=== PATIENT | female | born 1945 | race Caucasian/White ===

== ENCOUNTER → 2018-03-21 | Outpatient (CLI) | payer MEDICARE ==
[~2018-03-21] MED LIST: COREG3.125 MG PO; IOPAMIDOL 370 MG/ML 200 ML INFUS..BTL INJ ONE; LEVAQUIN750 MG PO; LIPITOR20 MG PO; NORVASC5 MG PO; PLAVIX75 MG PO; SODIUM CHLORIDE 0.9% 100 ML ONE; SODIUM CHLORIDE 0.9% 250ML 500 ML ONE; SODIUM CHLORIDE 0.9% 50ML 50 ML ONE
[2018-03-21 15:24] LABS: CREATININE, SERUM 1.44 mg/dL (0.57-1.11)
--- NOTE | 2018-03-22 13:42 | Diagnostic Imaging Report ---
EXAMINATION: CT angiogram of the [place] and neck with contrast CLINICAL HISTORY: Dizziness, enlarged ventricles, vertebral basilar atherosclerosis. COMPARISON: Brain MRI on 10/15/2009 TECHNIQUE: The head and neck was scanned utilizing a multidetector helical scanner from the thoracic inlet to the vertex after the I.V contrast administration of 75 mL of Isovue-370. Multiplanar sagittal and coronal reconstructions were performed as well. FINDINGS: The are no areas of abnormal density or enhancement in the brain. There is no mass, hemorrhage or extra-axial fluid collection. The CSF containing spaces are normal in size, position and configuration. CT ANGIOGRAM OF THE [place]: The internal carotid artery segments as well as the middle cerebral and anterior cerebral arteries are normal in caliber. The basilar and right vertebral arteries are normal. No vascular malformation or aneurysmal dilatation is seen. The draining venous structures are normal and patent. Anatomic variation: Anterior Communicating Artery: Patent Posterior Communicating Arteries: Patent bilaterally. origin of left [employer] Vertebral arteries: The right is dominant. 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 Fenestrated basilar artery CT ANGIOGRAM OF THE NECK: If present, stenosis of the carotid bulbs is measured based on NASCET criteria i.e area of maximum stenosis compared to the cervical ICA distal to the bulb. The origin of the vessels is patent bilaterally. Mostly calcified atherosclerotic plaque in the bilateral carotid bulbs results in mild stenosis (a some 50%.) Right Carotid Artery: The common carotid, internal and external carotid arteries at the level of the neck are normal in caliber, and patent, no evidence of stenoses. Left carotid artery: The common carotid, internal and external carotid arteries at the level of the neck are normal in caliber, and patent, no evidence of stenoses. 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 The right vertebral artery is dominant, patent. Both are normal in morphology and caliber. Both are codominant. No significant stenosis is seen. Incidental findings: Near complete opacification of the right maxillary sinus with hyperdensity/central calcifications likely from chronic artery process. IMPRESSION: 1. Mild stenosis of the bilateral carotid bulbs (less than 50%). 2. 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 Signed by: Dr. Janis Wallace M.D. on 03/22/2018 1:38 PM
--- NOTE | 2018-03-22 13:42 | Diagnostic Imaging Report ---
EXAMINATION: CT angiogram of the [place] and neck with contrast CLINICAL HISTORY: Dizziness, enlarged ventricles, vertebral basilar atherosclerosis. COMPARISON: Brain MRI on 10/15/2009 TECHNIQUE: The head and neck was scanned utilizing a multidetector helical scanner from the thoracic inlet to the vertex after the I.V contrast administration of 75 mL of Isovue-370. Multiplanar sagittal and coronal reconstructions were performed as well. FINDINGS: The are no areas of abnormal density or enhancement in the brain. There is no mass, hemorrhage or extra-axial fluid collection. The CSF containing spaces are normal in size, position and configuration. CT ANGIOGRAM OF THE [place]: The internal carotid artery segments as well as the middle cerebral and anterior cerebral arteries are normal in caliber. The basilar and right vertebral arteries are normal. No vascular malformation or aneurysmal dilatation is seen. The draining venous structures are normal and patent. Anatomic variation: Anterior Communicating Artery: Patent Posterior Communicating Arteries: Patent bilaterally. origin of left [employer] Vertebral arteries: The right is dominant. 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 Fenestrated basilar artery CT ANGIOGRAM OF THE NECK: If present, stenosis of the carotid bulbs is measured based on NASCET criteria i.e area of maximum stenosis compared to the cervical ICA distal to the bulb. The origin of the vessels is patent bilaterally. Mostly calcified atherosclerotic plaque in the bilateral carotid bulbs results in mild stenosis (a some 50%.) Right Carotid Artery: The common carotid, internal and external carotid arteries at the level of the neck are normal in caliber, and patent, no evidence of stenoses. Left carotid artery: The common carotid, internal and external carotid arteries at the level of the neck are normal in caliber, and patent, no evidence of stenoses. 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 The right vertebral artery is dominant, patent. Both are normal in morphology and caliber. Both are codominant. No significant stenosis is seen. Incidental findings: Near complete opacification of the right maxillary sinus with hyperdensity/central calcifications likely from chronic artery process. IMPRESSION: 1. Mild stenosis of the bilateral carotid bulbs (less than 50%). 2. 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 Signed by: Dr. Janis Wallace M.D. on 03/22/2018 1:38 PM
== END ==
LOC: CT 14:37
PROVIDERS: ATTEND Radiology Neuroradiology
DX: G45.0 Vertebro-basilar artery syndrome (principal)
CPT/HCPCS: 36415; 70496; 70498; 82565; 84520; J7050 ×2; Q9967

== ENCOUNTER → 2018-08-16 | Day surgery (SDC) | payer MEDICARE ==
[2018-08-15 11:28] LABS: BASOPHILS # (AUTO) 0.1 (0.0-0.1); BASOPHILS % 0.7 % (0.0-1.0); EOSINOPHILS # (AUTO) 0.2 (0.0-0.4); HEMATOCRIT 34.1 % (34.2-44.1); HEMOGLOBIN 11.4 g/dL (12.0-16.0); LYMPHOCYTES # (AUTO) 2.3 (1.0-3.2); LYMPHOCYTES % 34.1 % (18.0-39.1); MEAN CORPUSCULAR HEMOGLOBIN 31.1 pg (28-32); MEAN CORPUSCULAR HGB CONC 33.4 g/dL (31-35); MEAN CORPUSCULAR VOLUME 93.2 fL (81-99); MONOCYTES # (AUTO) 0.4 (0.2-0.8); MONOCYTES % 5.5 % (4.4-11.3); NEUTROPHILS # (AUTO) 3.8 (2.1-6.9); NEUTROPHILS % 56.4 % (38.7-80.0); PLATELET COUNT 200 x10e3/uL (140-360); RED BLOOD COUNT 3.66 x10e6/uL (3.6-5.1); RED CELL DISTRIBUTION WIDTH 11.9 % (11.7-14.4)
[2018-08-15 11:50] LABS: INR 0.88; PROTHROMBIN TIME 12.8 seconds (11.9-14.5)
[2018-08-15 11:51] LABS: ALBUMIN 3.7 g/dL (3.5-5.0); ALBUMIN/GLOBULIN RATIO 1.2 (0.8-2.0); ANION GAP 10.3 mmol/L (8-16); CHOL/HDL RATIO 3.1 (3.0-3.6); CREATININE, SERUM 1.52 mg/dL (0.57-1.11); POTASSIUM 5.3 mmol/L (3.5-5.1)
[~2018-08-16] VITALS: Ht 154.9 cm; Wt 49.0 kg
[2018-08-16] VITALS (8 sets, daily range): BP systolic 106–167; BP diastolic 53–97
[~2018-08-16] MED LIST changes: +ASPIR 8181 MG PO; +FENTANYL CITRATE/PF 100MCG/2 ML INJ ONE; +HEPARIN SOD/SOD CHLORIDE 2,000 ML ONE; +HYDROCHLOROTHIA25 MG PO; +IBANDRONATE SO150 MG PO; +LIDOCAINE HCL 2% LOCAL 20 ML VIAL ONE; +METOPROLOL SUCC25 MG PO; +MIDAZOLAM HCL 2 MG/2 ML VIAL ONE; -SODIUM CHLORIDE 0.9% 100 ML ONE; +SODIUM CHLORIDE 0.9% 1000ML 1,000 ML ONE; -SODIUM CHLORIDE 0.9% 250ML 500 ML ONE; -SODIUM CHLORIDE 0.9% 50ML 50 ML ONE
--- OUTSIDE RECORDS SUMMARY | 2018-08-16 11:58 | XMS REPORT | Summary of Care ---
Author Author [facility] Organization [facility] Address Unknown Phone Unavailable Encounter BEN Friedman(CESAR) [id number] Date(s): 02/15/16 - 02/15/16 [facility] [address] [place] [address]- Discharge Disposition: Home Attending Physician: Dewey Portillo MD Referring Physician: Dewey Portillo MD Vital Signs No data available for this section Problem List Condition Effective Dates Status Health Status Informant Benign Active hypertension1, 2 Chest pain3, 4 Active Disorder of carotid Active artery5, 6 Dizziness7, 8 Active Dizziness(Confirmed) Resolved Hyperlipidemia9, 10 11/13/13 Active Preinfarction Active [id number], 12 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 2Data migrated from [employer] on 02/16/15. 3Data migrated from [employer] on 02/16/15. 4Data migrated from [employer] on 02/16/15. 5Data migrated from [employer] on 02/16/15. 6Data migrated from [employer] on 02/16/15. 7Data migrated from [employer] on 02/16/15. 8Data migrated from [employer] on 02/16/15. 9Data migrated from [employer] on 02/16/15. 10Data migrated from [employer] on 02/16/15. 11Data migrated from [employer] on 02/16/15. 12Data migrated from [employer] on 02/16/15. 13Data migrated from [employer] on 05/11/15. Allergies, Adverse Reactions, Alerts Substance Reaction Severity Status codeine1 Active Demerol HCl Active meperidine2 Active 1Data migrated from [employer] on 11/17/15. Originally documented as CODEINE. 2Data migrated from [facility] on 01/14/15. Originally documented as DEMEROL. Medications No data available for this section Results No data available for this section Immunizations No data available for this section Procedures No data available for this section Social History No data available for this section Assessment and Plan No data available for this section
--- OUTSIDE RECORDS SUMMARY | 2018-08-16 11:58 | XMS REPORT | Summary of Care ---
Author Organization Unknown Address Unknown Phone Unavailable Encounter [facility] Encntr_gordon(CESAR) [id number] Date(s): 02/17/14 - 02/17/14 [facility] [address] Discharge Disposition: Home Physician Attending: Alber Desai DO Physician_Referring: Alber Desai DO Reason for Visit 3D SCREENING/ 733.01 AGE RELATED OSTEOPOROSIS Problem List Condition Effective Dates Status Health Status Informant Chest Resolved pain(Confirmed) Dizziness(Confirmed) Resolved Allergies, Adverse Reactions, Alerts Substance Reaction Severity Status codeine Active Demerol HCl Active Medications No data available for this section Medications Administered During Your Visit No data available for this section Immunizations No data available for this section
--- OUTSIDE RECORDS SUMMARY | 2018-08-16 11:58 | XMS REPORT | Summary of Care ---
Author Author [facility] Organization [facility] Address Unknown Phone Unavailable Encounter HQ Konrad_gordon(FIN) [id number] Date(s): 08/27/15 - 08/27/15 [facility] [place] [address] [place] [address] [facility] [phone] Discharge Disposition: Home Attending Physician: Sabiha Mcgowan MD Vital Signs No data available for this section Problem List Condition Effective Dates Status Health Status Informant Benign Active hypertension1, 2 Chest pain3, 4 Active Disorder of carotid Active artery5, 6 Dizziness7, 8 Active Dizziness(Confirmed) Resolved Hyperlipidemia9, 10 11/13/13 Active Preinfarction Active [id number], 12 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 [...] Severity Status codeine Active Demerol HCl Active meperidine1 Active 1Data migrated from [employer] on 01/14/15. Originally documented as DEMEROL. Medications No data available for this section Results No data available for this section Immunizations No data available for this section Procedures No data available for this section Social History No data available for this section Assessment and Plan No data available for this section
--- OUTSIDE RECORDS SUMMARY | 2018-08-16 11:58 | XMS REPORT | Continuity of Care Document ---
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 The patient is s/p bypass of the proximal subclavian artery and has done well for years. Two years ago, she had a temporary worsening of symptoms due to r educed cardiac output from diastolic heart failure. --Currently, the only residual of the syndrome is listing at times. 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 Maryanne Diego Diastolic heart failure<sup>6, 7</sup> Active 02/23/2016 Problem 03/15/2018 Data migrated from [employer] on 10/04/15. The patient improved after amlodipine was added to her regimen after the heart catheterization. However, she has residual symptoms and has not been able to followup with Dr. Smith (he apparently left the area). She may improve further with additional intervention. She should have cardiology follow up. Originally documented as Diastolic heart failure. Maryanne Diego DX: M81.0=AGE-RELATED OSTEOPOROSIS WIT Active 02/01/2016 [facility] R22.0 - "LOCALIZED SWELLING, MASS AND L" Active 08/25/2015 REBECA Carrasco OSTEOPOROSIS Active 02/03/2015 [facility] History of brain disorder<sup>12</sup> Active 10/23/2014 Problem 03/15/2018 Data migrated from [employer] on 10/04/15. The patient suffered a delirium possibly even with primary meningitis or encephalitis during an attack of pneumonia in August. She has done strikingly well and is still improving. She had ventriculomegaly demonstrated on another MRI of the brain but this is asymptomatic. No intervention is indicated. Originally documented as History of delirium. Maryanne Diego 3D SCREENING/ 733.01 AGE RELATED OSTEOPO Active 02/04/2014 [facility] Hyperlipidemia<sup>13, 14</sup> Active 11/13/2013 Problem 03/15/2018 Data migrated from [employer] on 02/16/15. [facility] [place] Hyperlipidemia<sup>9, 10</sup> Active 11/13/2013 Problem 02/18/2016 Data migrated from [employer] on 02/16/15. [facility] [place],[facility] UNSTABLE ANGINA Active 10/23/2013 [facility] Vertebrobasilar artery syndrome<sup>17</sup> Active 10/09/2013 Problem 03/15/2018 Data migrated from [employer] on 05/11/15. [facility] [place] Vertebrobasilar artery syndrome<sup>13</sup> Active 10/09/2013 Problem 02/18/2016 Data migrated from [employer] on 05/11/15. REBECA Carrasco,[facility] Benign hypertension<sup>2, 3</sup> Active Problem 03/15/2018 Data migrated from [employer] on 02/16/15. [facility] [place] Chest pain<sup>4, 5</sup> Active Problem 03/15/2018 Data migrated from [employer] on 02/16/15. 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 [facility] [place] Dizziness<sup>10, 11</sup> Active Problem 03/15/2018 Data migrated from [employer] on 02/16/15. [facility] [place] Dizziness Resolved Problem 03/15/2018 [facility] [place] Preinfarction syndrome<sup>15, 16</sup> Active Problem 03/15/2018 Data migrated from [employer] on 02/16/15. [facility] [place] Chest pain Resolved Problem 02/12/2015 [facility] Benign hypertension<sup>1, 2</sup> Active Problem 02/18/2016 Data migrated from [employer] on 02/16/15. [facility] [place],[facility] Chest pain<sup>3, 4</sup> Active Problem 02/18/2016 Data migrated from [employer] on 02/16/15. [facility] Disorder of carotid artery<sup>5, 6</sup> Active Problem 02/18/2016 Data migrated from [employer] on 02/16/15. [facility] Dizziness<sup>7, 8</sup> Active Problem 02/18/2016 Data migrated from [employer] on 02/16/15. [facility] Preinfarction syndrome<sup>11, 12</sup> Active Problem 02/18/2016 Data migrated from [employer] on 02/16/15. [facility] SENILE OSTEOPOROSIS Active [facility] SCREEN MAMMOGRAM NEC Active [facility] OSTEOPOROSIS NOS Active [facility] AGE-RELATED OSTEOPOROSIS W/O CURRENT PAT Active [facility] ENCNTR SCREEN MAMMOGRAM FOR MALIGNANT NE Active [facility] Medications Medication Details Route Status Patient Instructions Ordering Provider Order Date Source Norvasc 2.5 mg oral tablet 2.5 mg=1 tab, PO, Daily, # 30 tab, 0 Refill(s) Active [place] 10/24/2013 [facility] aspirin 81 mg tablet, enteric coated 81 mg=1 tab, PO, Daily, # 0 tab, 0 Refill(s) Active 10/24/2013 [facility] atorvastatin 40 mg, PO, Bedtime, 0 Refill(s) Active 10/24/2013 [facility] Coreg 1.56 mg, PO, BID, 0 Refill(s) Inactive 10/24/2013 [facility] Plavix 75 mg oral tablet 75 mg=1 tab, PO, Daily, # 30 tab, 0 Refill(s) Active 10/24/2013 [facility] midazolam 1 mg, Route: IV, ONCE, Dosing Weight 44.545, kg, Start date: 10/24/13 14:20:00, Stop date: 10/24/13 14:20:00 Inactive Triny 10/24/2013 [facility] fentanyl 100 microgram, Route: IV, ONCE, Dosing Weight 44.545, kg, Start date: 10/24/13 14:20:00, Stop date: 10/24/13 14:20:00 Inactive Triny 10/24/2013 [facility] Omnipaque 300 150 ml, Route: INTRAARTERIAL, Dosing Weight 44.545, kg, ONCE, Start date: 10/24/13 14:19:00, Stop date: 10/24/13 14:19:00 Inactive Agosto 10/24/2013 [facility] Allergies, Adverse Reactions, Alerts Substance Category Reaction Severity Reaction type Status Date Reported Comments Source codeine<sup>1, 2</sup> Assertion Drug allergy Active 09/23/2013 Data migrated from [employer] on 11/17/15. Originally documented as CODEINE. [facility] [place] meperidine<sup>3, 4</sup> Assertion Drug allergy Active 09/23/2013 Data migrated from [employer] on 01/14/15. Originally documented as DEMEROL. [facility] [place] meperidine<sup>1</sup> Assertion Drug allergy Active 10/23/2013 Data migrated from [employer] on 01/14/15. Originally documented as DEMEROL. [facility] [place] codeine<sup>1</sup> Assertion Drug allergy Active 10/23/2013 Data migrated from [employer] on 11/17/15. Originally documented as CODEINE. [facility] meperidine<sup>2</sup> Assertion Drug allergy Active 10/23/2013 Data migrated from [employer] on 01/14/15. Originally documented as DEMEROL. [facility] Dem[facility]ol HCl [facility]ion [facility] Drug allergy Active [facility] [place] Immunizations Immunization Date Given Site Status Last Updated Comments Source Results Order Name Results Value Reference Range Date Interpretation Comments Source Bone Density DXA [employer] MA Bone Density DXA [employer] MA BONE DENSITY ASSESSMENT: 04/29/2018 CLINICAL DATA: Post menopausal. Age-Related Osteoporosis Without Current Pathological Fracture/M81.0 RISK FACTORS: race. FINDINGS: Bone density evaluation was performed 04/29/2018 on the right femur neck using a Hologic unit. The BMD average for the exam is 0.602 g/cm2. The T-score is -2.20 and the Z-score is -0.20. This matches the World Health Organization's criteria for osteopenia and places the patient at a medium risk for fracture. An additional bone density evaluation was performed 04/29/2018 on the left femur neck using a Hologic unit. The BMD average for the exam is 0.549 g/cm2. The T- score is -2.70 and the Z-score is -0.70. This matches the World Health Organization's criteria for osteoporosis and places the patient at a high risk for fracture. An additional bone density evaluation was performed 04/29/2018 on the right hip using a Hologic unit. The BMD average for the exam is 0.734 g/cm2. The T-score is -1.70. This matches the World Health Organization's criteria for osteopenia and places the patient at a medium risk for fracture. An additional bone density evaluation was performed 04/29/2018 on the left hip using a Hologic unit. The BMD average for the exam is 0.649 g/cm2. The T-score is -2.40 and the Z-score is -0.70. This matches the World Health Organization's criteria for osteopenia and places the patient at a medium risk for fracture. An additional bone density evaluation was performed 04/29/2018 on the AP L2-L3 region of spine using a Hologic unit. The BMD average for the exam is 1.194 g/cm2. The T-score is 1.20 and the Z-score is 3.60. This matches the World Health Organization's criteria for normal bone density and places the patient within normal limits of fracture risk. IMPRESSION: OSTEOPENIA Patient is at medium risk for fracture. This exam was interpreted at [id number] for HORACIO Carrasco, SL 15. Jj De Paz M.D., cm/larisa:04/29/2018 09:32:34 Senior Ssis Developer(s): Fiona GALVAN(R)(M), [facility] 04/29/2018 - - Read by: Steven Cohn MD Dictated Date/time: 04/29/18 09:32 Electronically Signed by: Steven Cohn MD 04/29/18 09:32 FINAL REPORT REBECA Carrasco Breast Mammo Scrn RICHARD incl CAD MA Breast Mammo Scrn RICHARD incl CAD MA BILATERAL DIGITAL SCREENING MAMMOGRAM WITH CAD: 02/12/2018 CLINICAL: Encounter For Screening Mammogram For Malignant Neoplasm Of Breast/Z12.31. Current study was evaluated with a Computer Aided Detection (CAD) system. COMPARISON:Comparison is made to exams dated: 02/15/2016 mammogram, 02/09/2015 mammogram, 02/17/2014 mammogram, and 02/14/2013 mammogram - [facility]. TECHNIQUE: Mammographic views were obtained using digital acquisition. Current study was also evaluated with a Computer Aided Detection (CAD) system. FINDINGS: There are scattered fibroglandular densities in both breasts. There are benign appearing calcifications in both breasts. No significant masses, calcifications, or other findings are seen in either breast. There has been no significant interval change. IMPRESSION: BENIGN RECOMMENDATION:There is no mammographic evidence of malignancy. A 1 year screening mammogram is recommended.(02/13/2019) This exam was interpreted at [id number] for COLBY Cisneros 15. Professional services are provided by the [facility]. Tapan Langston M.D. rsl/penrad:02/14/2018 09:44:31 Senior Ssis Developer(s): RT Fior(R)(M), [facility] letter sent: BI-RADS 1/2 Mammogram BI-RADS: 2 Benign 02/12/2018 - - Read by: Tapan Langston MD Dictated Date/time: 02/14/18 09:44 Electronically Signed by: Tapan Langston MD 02/14/18 09:44 FINAL REPORT HORACIO Carrasco Barium swallow DX Barium swallow DX Exam: Barium swallow esophagram Reason for Exam: - R13.10 Dysphagia, unspecified Comparison Exam: None Discussion: Calender Wind Up Helper view of the cervical spine and soft tissues of the neck are unremarkable. Patient ingested air crystals and barium without incident. Upon deglutition, there was no evidence seen for aspiration or penetration. The valleculae and piriform sinuses are unremarkable. The esophagus is unremarkable in appearance, without evidence for mucosal abnormalities, abnormal filling defects, or external mass effect. No evidence seen for tertiary contraction waves or hiatal hernia. During the examination, there was no evidence seen for gastroesophageal reflux. The visualized portions of the stomach are unremarkable. Fluoro time 1 minute, 48 seconds. Total exam MQN=702 mGy-cm. Impression: 1. Unremarkable barium swallow esophagram. 08/03/2017 - - Read by: Bony Rojas MD Dictated Date/time: 08/03/17 09:43 Electronically Signed by: Bony Rojas MD 08/03/17 09:46 FINAL REPORT HORACIO Carrasco Bone Density DXA Dual Energy MA Bone Density DXA [employer] Energy MA - Bone Density DXA [employer] MA BONE DENSITY EVALUATION: 04/03/2017 CLINICAL DATA: Post menopausal. M81.0 Age related osteoporosis without current pathological fracture. RISK FACTORS: race. FINDINGS: Bone density evaluation was performed 04/03/2017 on the AP L1-L4 region of spine using a Hologic unit. The BMD average for the exam is 1.021 g/cm2. The T-score is -0.20 and the Z-score is 2.00. This matches the World Health Organization's criteria for normal bone density and places the patient within normal limits of fracture risk. An additional bone density evaluation was performed 04/03/2017 on the right femur neck using a Hologic unit. The BMD average for the exam is 0.592 g/cm2. The T-score is -2.30 and the Z-score is -0.40. This matches the World Health Organization's criteria for osteopenia and places the patient at a medium risk for fracture. An additional bone density evaluation was performed 04/03/2017 on the right hip using a Hologic unit. The BMD average for the exam is 0.720 g/cm2. The T-score is -1.80 and the Z-score is -0.20. This matches the World Health Organization's criteria for osteopenia and places the patient at a medium risk for fracture. An additional bone density evaluation was performed 04/03/2017 on the left femur neck using a Hologic unit. The BMD average for the exam is 0.554 g/cm2. The T- score is -2.70 and the Z-score is -0.70. This matches the World Health Organization's criteria for osteoporosis and places the patient at a high risk for fracture. An additional bone density evaluation was performed 04/03/2017 on the left hip using a Hologic unit. The BMD average for the exam is 0.641 g/cm2. The T-score is -2.50 and the Z-score is -0.80. This matches the World Health Organization's criteria for osteoporosis and places the patient at a high risk for fracture. IMPRESSION: OSTEOPOROSIS Patient is at high risk for fracture. Professional services are provided by the [facility]. This exam was dictated and interpreted by [id number] for HORACIO De Paz M.D. cm/penrad:04/04/2017 08:42:46 Senior Ssis Developer: Adriane CANAS (R)), [facility] 04/03/2017 - - Read by: Steven Cohn MD Dictated Date/time: 04/04/17 08:42 Electronically Signed by: Steven Cohn MD 04/04/17 08:42 FINAL REPORT REBECA Carrasco Bone Density Scan Bone Density Scan EXAM: Bone density scan HISTORY: Age-related osteoporosis without prior pathological fracture COMPARISON: 02/09/2015 TECHNIQUE: Bone densitometry performed on the lumbar spine and left hip utilizing the Discovery SL bone densitometer. FINDINGS: Scoliosis. The L1-L4 bone mineral density is 101% of predicted peak reference with T-score of 0.1. This is normal. Focal osteopenia of L4 with T- score -1.7. No significant change. The left femoral neck bone mineral density is 66% of predicted peak reference with T-score of -2.6. This is osteoporotic. No significant change. IMPRESSION: 1. Normal bone density of the overall lumbar spine with focal osteopenia of L4. 2. Osteoporosis of the left femoral neck. SL: [id number] 02/15/2016 - - Read by: Luis Armando Wilder MD Dictated Date/time: 02/15/16 08:20 Electronically Signed by: Luis Armando Wilder MD 02/15/16 08:24 FINAL REPORT [facility] Digital Mammo Screening [facility] [place] Digital Mammo Screening [facility] [place] - DIGITAL MAMMO SCREENING RICHARD MA BILATERAL DIGITAL SCREENING MAMMOGRAM WITH CAD: 02/15/2016 CLINICAL: Other Screening Mammogram. Current study was evaluated with a Computer Aided Detection (CAD) system. Comparison is made to exams dated: 02/09/2015 mammogram, 02/17/2014 mammogram, 02/14/2013 mammogram - [facility], 02/15/2012 mammogram, 10/07/2010 mammogram and 12/18/2008 mammogram - [facility]. The tissue of both breasts is almost entirely fat. No significant masses, calcifications, or other findings are seen in either breast. There has been no significant interval change. IMPRESSION: NEGATIVE There is no mammographic evidence of malignancy. A 1 year screening mammogram is recommended. Tom edmonds/penkellie:02/15/2016 13:23:48 Senior Ssis Developer: Valeria Pino, [facility] This exam was dictated and interpreted by [id number] for [facility] Breast [place]. letter sent: Normal exam Mammogram BI-RADS: 1 Negative 02/15/2016 - - Read by: Tom Wiseman MD Dictated Date/time: 02/15/16 13:23 Electronically Signed by: Tom Wiseman MD 02/15/16 13:23 FINAL REPORT [facility] Sinus wo contrast CT Sinus wo contrast CT CT paranasal sinuses without contrast Clinical: Pain and swelling. Comparison: None available. Finding: The DLP is 445 mGy - cm. Maxillary: Well aerated left maxillary sinus. Moderate mucosal disease is present along the lateral and anterior margin of the right maxillary sinus, with sclerosis of the right maxillary sinus betancourt and partial calcification of the mucosal contents indicating chronic sinusitis. Sphenoid: Mild to moderate mucosal disease present within the bilateral sphenoid sinuses. The bilateral sphenoid ostia appear patent. Ethmoid: Well-aerated. Frontal: Well-aerated. Nasal cavity/Ostiomeatal units: Nasal septal deviation to the right is present, measuring approximately 2.7 mm from the midline. Moderate nasal turbinate mucosal hypertrophy is seen. No shannon bullosa is seen. No nasal cavity soft tissue mass is present. Left Janneth air cells are present with moderate stenosis of the left maxillary ostium and ethmoid infundibulum. Moderate stenosis of the right maxillary ostium is present due to minimal Janneth air cells and minimal mucosal thickening. Soft tissues/Mastoids: Cerebral atrophy with moderate ventriculomegaly is stable since [address] The nasopharyngeal soft tissues appear symmetric. Atherosclerotic calcifications are seen in carotid arteries. IMPRESSION: 1. Moderate right maxillary chronic sinusitis, mild to moderate sphenoid sinusitis. No air-fluid level. 2. Moderate stenosis of the bilateral ostiomeatal units. 3. Nasal septal deviation to the right. 4. Please see additional comments above. 08/27/2015 - - Read by: Som Zaman MD Dictated Date/time: 08/27/15 12:43 Electronically Signed by: Som Zaman MD 08/27/15 14:58 FINAL REPORT REBECA Carrasco Digital Mammo Screen Richard MA w jonathan Digital Mammo Screen Richard MA w jonathan - DIGITAL MAMMO SCREEN RICHARD MA W JONATHAN BILATERAL DIGITAL SCREENING MAMMOGRAM 3D/2D WITH CAD: 02/17/2014 CLINICAL: Routine. 2D digital mammographic images and 3D digital tomosynthesis images were obtained in the CC and MLO projections. Current study was evaluated with a Computer Aided Detection (CAD) system. Comparison is made to exams dated: 02/14/2013 mammogram - [facility], 02/15/2012 mammogram, 10/07/2010 mammogram, 12/18/2008 mammogram, 12/13/2007 mammogram - [facility] and 12/07/2006 mammogram - [facility]. The tissue of both breasts is almost entirely fat. No significant masses, calcifications, or other findings are seen in either breast. There has been no significant interval change. IMPRESSION: NEGATIVE There is no mammographic evidence of malignancy. A screening mammogram in one year is recommended. Katey purvis/larisa:02/18/2014 08:43:27 Senior Ssis Developer: Minerva Jaeger, [facility] This exam was dictated and interpreted by [id number] for [facility] [place]. letter sent: Normal exam Mammogram BI-RADS: 1 Negative 02/17/2014 - - Read by: Katey Palomo MD Dictated Date/time: 02/18/14 08:43 Electronically Signed by: Katey Palomo MD 02/18/14 08:43 FINAL REPORT [facility] Bone Density Scan Bone Density Scan PROCEDURE: Bone Density Scan REASON FOR EXAM: See Clinic Indication CLINICAL INFORMATION Osteoporosis COMPARISON: None. FINDINGS: The lumbar spine bone mineral density is 1.06. This is 101% of the expected normal value, 0.1 standard deviations above normal. This is decreased 1.8% from the prior exam. The left hip bone mineral density is 0.77. This is 81% of the expected normal value, -1.4 standard deviations below normal. This is decreased 4.9% from the prior exam. The femoral neck bone mineral density is 0.58. IMPRESSION: 1. Normal bone mineral density of the lumbar spine. 2. Osteopenia of the left hip. SL: 16 02/17/2014 - - Read by: Jace Walsh MD Dictated Date/time: 02/17/14 14:04 Electronically Signed by: Jace Walsh MD 02/17/14 14:05 FINAL REPORT [facility] CHEMISTRY POC A K 3.5 meq/L 3.5 - 5.1 10/24/2013 Normal [facility] CHEMISTRY POC A Na 136 meq/L 135 - 145 10/24/2013 Normal [facility] CHEMISTRY POC A Hct 31.0 % 36.0 - 48.0 10/24/2013 LOW [facility] CHEMISTRY POC A O2 Sat 96.0 % 95.0 - 100.0 10/24/2013 Normal [facility] CHEMISTRY POC A Glu 78 mg/dL 70 - 99 10/24/2013 Normal [facility] CHEMISTRY POC A LA 0.4 mMol/L 0.5 - 2.2 10/24/2013 LOW [facility] CHEMISTRY POC A Ca Ion 1.22 mMol/L 1.05 - 1.25 10/24/2013 Normal [facility] CHEMISTRY POC A BE 3 mMol/L -2-2 - 2 10/24/2013 [facility] CHEMISTRY POC A HCO3 29 mMol/L 22 - 26 10/24/2013 [facility] CHEMISTRY POC A PCO2 52 mm[Hg] 35 - 45 10/24/2013 [facility] CHEMISTRY POC A PO2 85 mm[Hg] 80 - 100 10/24/2013 Normal [facility] CHEMISTRY POC A pH 7.36 7.35 - 7.45 10/24/2013 Normal [facility] CHEMISTRY POC A Temp 37.0 Alaina 10/24/2013 [facility] CHEMISTRY POC A Source ART 10/24/2013 [facility] URINALYSIS UA Urobilinogen <=1.0 mg/dL 0.1 - 1.0 10/24/2013 [facility] URINALYSIS UA Mucus Few /LPF None Seen 10/24/2013 [facility] URINALYSIS UA Leuk Est Negative (10/24/2013 15:47:15) Negative 10/24/2013 Normal [facility] URINALYSIS UA RBC null 0 - 2 10/24/2013 Normal [facility] URINALYSIS UA Nitrite Negative (10/24/2013 15:47:15) Negative 10/24/2013 Normal [facility] URINALYSIS UA Bili Negative *NA* (10/24/2013 15:47:15) Negative 10/24/2013 [facility] URINALYSIS UA Blood Negative (10/24/2013 15:47:15) Negative 10/24/2013 Normal [facility] URINALYSIS UA Glucose Negative mg/dL Negative 10/24/2013 [facility] URINALYSIS UA Ketones Negative mg/dL Negative 10/24/2013 [facility] URINALYSIS UA pH 6.5 5.0 - 8.0 10/24/2013 Normal [facility] URINALYSIS UA Protein Negative mg/dL Negative 10/24/2013 Normal [facility] URINALYSIS UA Spec Grav 1.031 <=1.030 10/24/2013 [place] [facility] URINALYSIS UA Turbidity Clear (10/24/2013 15:47:15) Clear 10/24/2013 Normal [facility] URINALYSIS UA Sq Epi None Seen 10/24/2013 [facility] URINALYSIS UA Color Light Yellow *NA* (10/24/2013 15:47:15) Yellow 10/24/2013 [facility] CHEMISTRY AGAP 14.9 meq/L 10.0 - 20.0 10/24/2013 Normal [facility] CHEMISTRY eGFR 66 mL/min/1.73m2 10/24/2013 1Result Comment: The eGFR is calculated using the CKD-EPI formula. In most young, healthy individuals the eGFR will be >90 mL/min/1.73m2. The eGFR declines with age. An eGFR of 60-89 may be normal in some populations, particularly the elderly, for whom the CKD-EPI formula has not been extensively validated. Use of the eGFR is not recommended in the following populations: Individuals with unstable creatinine concentrations, including patients and those with serious co-morbid conditions. Patients with extremes in muscle mass or diet. The data above are obtained from the National Kidney Disease Education Program (NKDEP) which additionally recommends that when the eGFR is used in patients with extremes of body mass index for purposes of drug dosing, the eGFR should be multiplied by the estimated BMI. [facility] CHEMISTRY Potassium Lvl 3.9 meq/L 3.5 - 5.1 10/24/2013 Normal [facility] CHEMISTRY Chloride Lvl 101 meq/L 95 - 109 10/24/2013 Normal [facility] CHEMISTRY CO2 29 meq/L 24 - 32 10/24/2013 Normal [facility] CHEMISTRY Calcium Lvl 9.7 mg/dL 8.5 - 10.5 10/24/2013 Normal [facility] CHEMISTRY Sodium Lvl 141 meq/L 135 - 145 10/24/2013 Normal [facility] CHEMISTRY Creatinine Lvl 0.9 mg/dL 0.5 - 1.4 10/24/2013 Normal [facility] CHEMISTRY BUN 24 mg/dL 7 - 22 10/24/2013 HI [facility] CHEMISTRY Glucose Lvl 84 mg/dL 70 - 99 10/24/2013 Normal 2Interpretive Data: Adult reference range values reflect the clinical guidelines of the [place] [employer]. [facility] HEMATOLOGY MCH 30.0 pg 27.0 - 31.0 10/24/2013 Normal [facility] HEMATOLOGY Hgb 12.9 g/dL 12.0 - 16.0 10/24/2013 Normal [facility] HEMATOLOGY Hct 39.1 % 36.0 - 48.0 10/24/2013 Normal [facility] HEMATOLOGY MCV 90.5 fL 81.0 - 99.0 10/24/2013 Normal [facility] HEMATOLOGY Platelet 218 K/CMM 133 - 450 10/24/2013 Normal [facility] HEMATOLOGY MPV 10.1 fL 7.4 - 10.4 10/24/2013 Normal [facility] HEMATOLOGY MCHC 33.1 g/dL 32.0 - 36.0 10/24/2013 Normal [facility] HEMATOLOGY RDW 13.0 % 11.5 - 14.5 10/24/2013 Normal [facility] HEMATOLOGY WBC X 10x3 6.6 K/CMM 3.7 - 10.4 10/24/2013 Normal [facility] HEMATOLOGY RBC X 10x6 4.32 M/CMM 4.20 - 5.40 10/24/2013 Normal [facility] HEMATOLOGY aPTT 29.5 s 22.9 - 35.8 10/24/2013 Normal 4Interpretive Data: Heparin Therapeutic Range: 57 - 92 Seconds [facility] HEMATOLOGY PROTIME 12.5 s 12.0 - 14.7 10/24/2013 Normal [facility] HEMATOLOGY INR 0.94 0.85 - 1.17 10/24/2013 Normal 3Interpretive Data: RECOMMENDED RANGES FOR PROTIME INR: 2.0-3.0 for most medical and surgical thromboembolic states. 2.5-3.5 for artificial heart valves and recurrent embolism. INR SHOULD BE USED ONLY FOR PATIENTS ON STABLE ANTICOAGULANT THERAPY. [facility] HEMATOLOGY Lymphocytes # 2.3 K/CMM 1.0 - 5.5 10/24/2013 Normal [facility] HEMATOLOGY Monocytes # 0.5 K/CMM 0.0 - 0.8 10/24/2013 Normal [facility] HEMATOLOGY Eosinophils # 0.1 K/CMM 0.0 - 0.5 10/24/2013 Normal [facility] HEMATOLOGY Eosinophils 1.6 % 0.0 - 4.0 10/24/2013 Normal [facility] HEMATOLOGY Basophils 0.6 % 0.0 - 1.0 10/24/2013 Normal [facility] HEMATOLOGY Monocytes 7.4 % 2.0 - 12.0 10/24/2013 Normal [facility] HEMATOLOGY Segs-Bands # 3.6 K/CMM 1.5 - 8.1 10/24/2013 Normal [facility] HEMATOLOGY Segs 55.1 % 45.0 - 75.0 10/24/2013 Normal [facility] HEMATOLOGY Lymphocytes 35.3 % 20.0 - 40.0 10/24/2013 Normal [facility] BLOOD BANK RESULTS ABO/Rh A NEG 10/24/2013 [facility] BLOOD BANK RESULTS Antibody Scrn Negative (10/24/2013 12:00:00) 10/24/2013 Normal [facility] Angiogram vertebral arteries bilateral VR Angiogram vertebral arteries bilateral VR DIAGNOSTIC CEREBRAL ANGIOGRAM OPERATORS: MD Angel Estrada MD Dr. Chen was present for the critical portions the procedure and image interpretation and was immediately available for the entire procedure. HISTORY: Patient is a 59-year-old female referred by her neurologist for assessment of vertebrobasilar insufficiency. Patient has a prior history of subclavian steal syndrome with a carotid subclavian bypass. PROCEDURE: 3 vessel cerebral angiogram. CONSENT: The indication, risks and benefits of the procedure were discussed with the patient and their family. Risks include but are not limited to bleeding, infection, femoral artery injury, femoral artery occlusion, vessel injury, kidney damage, stroke, coma, . ANESTHESIA: Local in the right groin with bupivacaine. Conscious sedation with Versed and Fentanyl was given by the nurse under the supervision of the attending interventional neuroradiologist. Pre-, intra-, and post-conscious sedation monitoring records are available in the chart. MEDICATIONS: 0.5% Bupivacaine SQ 10 cc Versed 1 mg IV Fentanyl 100 mcg IV Procedure in detail: The patient was brought to the neuro-interventional suite and placed on the angio table in the supine position. Conscious sedation medications were administered by the nurse. The right femoral artery was accessed using a single wall micropuncture technique and a 5 Romanian sheath was placed and secured. A 5 Romanian Vert catheter was advanced with a 0.035 Terumo Glidewire into the aortic arch to select the following arteries by roadmap technique: Right internal carotid artery, Right vertebral artery, left internal carotid artery. 2D cerebral angiogram runs were performed respectively. After review of the angiographic images, the catheter was withdrawn. A right femoral artery angiogram was performed. The sheath was removed and hemostasis was sutured in place. The patient was transferred to the recovery room in stable condition. Contrast: Omnipaque 300, total 50cc. Radiation Dose: 146 mGy AP 48 mg Lat Fluoro time: 6:33 min Tasks: 1. Right femoral artery catheterization. 2. Right internal carotid artery selective catheterization with cervical and cerebral 2D angiogram runs. 3. Right vertebral artery selective catheterization with cervical and cerebral 2D angiogram runs. 4. Left internal carotid artery selective catheterization with cervical and cerebral 2D angiogram runs. 5. Left vertebral artery selective catheterization with cervical and cerebral 2D angiogram runs. FINDINGS: ARCH: The aortic arch run demonstrates patent right innominate artery, right vertebral artery, right common carotid artery, left common carotid artery. There is occlusion of the takeoff of the left subclavian artery. There is a left carotid to subclavian bypass graft that is intact. RIGHT COMMON CAROTID ARTERY: The injection demonstrates no evidence of carotid artery bifurcation stenosis or dissection. RIGHT INTERNAL CAROTID ARTERY, CEREBRAL: The injection demonstrates brisk opacification of the right internal carotid artery, right MCA, and right GIACOMO with moderate cross-filling of the contralateral GIACOMO. There is no evidence of aneurysm, focal stenosis, AVM, fistula, dissection, or other abnormality. There is a large posterior commuting artery with a type EC A filling the entire posterior cerebral artery, with retrograde flow down the superior aspect of the basilar artery. RIGHT VERTEBRAL ARTERY: The injection demonstrates brisk opacification of the right vertebral artery, PICA, basilar artery, and bilateral SCA. There is no filling of the greens keeper bilaterally. Vertebral artery injection ends in bilateral superior cerebellar arteries. There is retrograde filling of the left vertebral artery and PICA branches.. There is no evidence of aneurysm, focal stenosis, AVM, fistula, dissection, or other abnormality. LEFT COMMON CAROTID ARTERY, CEREBRAL: The injection demonstrates no evidence of carotid artery bifurcation stenosis or dissection. LEFT INTERNAL CAROTID ARTERY, CEREBRAL: The injection demonstrates brisk opacification of the left internal carotid artery, left MCA. There is a hypoplastic left A1 segment with minimal filling of the intracerebral circulation. There is a large posterior communicating artery filling the a type CURB BUILDER. There is no evidence of aneurysm, focal stenosis, AVM, fistula, dissection, or other abnormality. COMPLICATIONS: None. IMPRESSION: 1. Occlusion of the takeoff of the left subclavian artery with no antegrade flow in the left vertebral artery. 2. A patent bypass graft from the left carotid artery to the left subclavian artery. 3. Bilateral CURB BUILDER filling from large posterior communicating branches filling the entire CURB BUILDER circulation. 4. There is no evidence of vertebrobasilar insufficiency. 10/24/2013 - - This report was dictated by a Supervisor [employer] Workers/Fellow. I have personally reviewed the images as well as the Resident's interpretation and agree with the findings. Read by: Angel Villarreal Resident: Angel Villarreal Dictated Date/time: 10/24/13 16:11 Electronically Signed by: Doug Agosto MD 10/24/13 18:36 FINAL REPORT [facility] Vital Signs Vital Sign Value Date Comments Source Weight 49.545 03/12/2018 [facility] Heart Rate 75 03/12/2018 [facility] Systolic (mm Hg) 126 03/12/2018 [facility] Diastolic (mm Hg) 75 03/12/2018 [facility] Diastolic (mm Hg) 63 10/24/2013 [facility] Systolic (mm Hg) 138 10/24/2013 [facility] Diastolic (mm Hg) 70 10/24/2013 [facility] Systolic (mm Hg) 155 10/24/2013 [facility] Diastolic (mm Hg) 70 10/24/2013 [facility] Systolic (mm Hg) 160 10/24/2013 [facility] Respitory Rate 16 10/24/2013 [facility] Respitory Rate 14 10/24/2013 [facility] Respitory Rate 16 10/24/2013 [facility] Height 152.4 cm 10/24/2013 [facility] Weight 44.545 10/24/2013 [facility] Encounters Location Location Details Encounter Type Encounter Number Reason For Visit Attending Provider ADM Date DC Date Status Source [facility] HENNY [id number] VANE BRAVORAHUL 10/24/2013 10/24/2013 Active [facility] Outpatient [id number] Alber Lloyd 02/17/2014 02/18/2014 [facility] Outpatient [id number] Dewey Portillo 02/09/2015 02/10/2015 [facility] [place] [facility] [id number] Ankitcole Roslyn 08/27/2015 08/28/2015 [facility] [place] [facility] Outpatient [id number] Dewey Portillo 02/15/2016 02/16/2016 [facility] Outpatient [id number] [facility] 02/23/2016 Active [facility] Outpatient [id number] [facility] 02/22/2017 Active [facility] [place] [facility] [id number] Dewey Portillo 04/03/2017 04/04/2017 [facility] [place] [facility]patient [facility] [place] [facility] [id number] Dewey Portillo 08/03/2017 08/04/2017 [facility] [place] [facility] Outpatient [facility] - [place] [facility] [id number] Dewey Portillo 02/12/2018 02/13/2018 [facility] [place] Out[facility] [id number] [facility] 02/21/2018 Active [facility] Neurology [facility] Ambulatory Pre-Reg [id number] [facility] 02/21/2018 02/21/2018 [facility] Outpatient [id number] [facility] 03/12/2018 Active [facility] Neurology [facility] Outpatient [id number] [facility] 03/12/2018 03/13/2018 [facility] Procedures Procedure Code Date Perfomer Comments Source Appendectomy [id number] [facility] [place] Miscellaneous operations [id number] [facility] [place] Open heart surgery [id number] [facility] [place] Triple coronary bypass [id number] [facility] [place] Appendectomy [id number] [facility] Miscellaneous operations [id number] [facility] Open heart surgery [id number] [facility] Triple coronary bypass [id number] [facility]
--- OUTSIDE RECORDS SUMMARY | 2018-08-16 11:58 | XMS REPORT | CCD ---
Author Author Auto Generated Organization [facility] Address Unknown Phone Unavailable Care Team Providers Care Valet Service Attendant Name Role Phone Dominick Smith RP Allergies, Adverse Reactions, Alerts Substance Reaction Status codeine Active Demerol HCl Active Problem List Condition Effective Dates Status Chest pain Resolved Dizziness Resolved Medications Medication Instructions Start Date End Date Status midazolam 1 mg, Route: IV, ONCE, Dosing 10/24/2013 10/24/2013 Completed Weight 44.545, kg, Start date: 10/24/13 14:20:00, Stop date: 10/24/13 14:20:00 Omnipaque 300 150 ml, Route: INTRAARTERIAL, 10/24/2013 10/24/2013 Completed Dosing Weight 44.545, kg, ONCE, Start date: 10/24/13 14:19:00, Stop date: 10/24/13 14:19:00 aspirin 81 mg 81 mg=1 tab, PO, Daily, # 0 tab, 0 10/24/2013 Ordered tablet, enteric Refill(s) coated Norvasc 2.5 mg oral 2.5 mg=1 tab, PO, Daily, # 30 tab, 10/24/2013 Ordered tablet 0 Refill(s) fentanyl 100 microgram, Route: IV, ONCE, 10/24/2013 10/24/2013 Completed Dosing Weight 44.545, kg, Start date: 10/24/13 14:20:00, Stop date: 10/24/13 14:20:00 atorvastatin 40 mg, PO, Bedtime, 0 Refill(s) 10/24/2013 Ordered Coreg 1.56 mg, PO, BID, 0 Refill(s) 10/24/2013 10/24/2013 Discontinued Plavix 75 mg oral 75 mg=1 tab, PO, Daily, # 30 tab, 0 10/24/2013 Ordered tablet Refill(s) Vital Signs Most recent to oldest [Reference Range]: 1 2 3 Height 152.4 cm (10/24/2013 12:43:00) Systolic Blood Pressure [90-140 mmHg] 138 mmHg (10/24/2013 16:45:00) 155 mmHg *HI* (10/24/2013 16:30:00) 160 mmHg *HI* (10/24/2013 14:45:00) Diastolic Blood Pressure [60-90 mmHg] 63 mmHg (10/24/2013 16:45:00) 70 mmHg (10/24/2013 16:30:00) 70 mmHg (10/24/2013 14:45:00) Respiratory Rate [14-20 BRMIN] 16 BRMIN (10/24/2013 14:30:00) 14 BRMIN (10/24/2013 14:25:00) 16 BRMIN (10/24/2013 14:20:00) Weight 44.545 kg (10/24/2013 12:43:00) Results URINALYSIS Most recent to oldest [Reference Range]: 1 UA Turbidity [Clear] Clear (10/24/2013 15:47:15) UA Color [Yellow] Light Yellow *NA* (10/24/2013 15:47:15) UA pH [5.0-8.0] 6.5 (10/24/2013 15:47:15) UA Spec Grav [<=1.030] 1.031 *HI* (10/24/2013 15:47:15) UA Glucose [Negative mg/dL] Negative mg/dL *NA* (10/24/2013 15:47:15) UA Blood [Negative] Negative (10/24/2013 15:47:15) UA Ketones [Negative mg/dL] Negative mg/dL *NA* (10/24/2013 15:47:15) UA Protein [Negative mg/dL] Negative mg/dL (10/24/2013 15:47:15) UA Urobilinogen [0.1-1.0 mg/dL] <=1.0 mg/dL *NA* (10/24/2013 15:47:15) UA Bili [Negative] Negative *NA* (10/24/2013 15:47:15) UA Leuk Est [Negative] Negative (10/24/2013 15:47:15) UA Nitrite [Negative] Negative (10/24/2013 15:47:15) UA RBC [0-2 /HPF] <1 /HPF (10/24/2013 15:47:15) UA Sq Epi None Seen *NA* (10/24/2013 15:47:15) UA Mucus [None Seen /LPF] Few /LPF *NA* (10/24/2013 15:47:15) BLOOD BANK RESULTS Most recent to oldest [Reference Range]: 1 ABO/Rh A NEG *Unknown* (10/24/2013 12:00:00) Antibody Scrn Negative (10/24/2013 12:00:00) CHEMISTRY Most recent to oldest [Reference Range]: 1 Sodium Lvl [135-145 mEq/L] 141 mEq/L (10/24/2013 12:57:00) Potassium Lvl [3.5-5.1 mEq/L] 3.9 mEq/L (10/24/2013 12:57:00) Chloride Lvl [95-109 mEq/L] 101 mEq/L (10/24/2013 12:57:00) CO2 [24-32 mEq/L] 29 mEq/L (10/24/2013 12:57:00) AGAP [10.0-20.0 mEq/L] 14.9 mEq/L (10/24/2013 12:57:00) Creatinine Lvl [0.5-1.4 mg/dL] 0.9 mg/dL (10/24/2013 12:57:00) eGFR 66 mL/min/1.73m2 1 *NA* (10/24/2013 12:57:00) BUN [7-22 mg/dL] 24 mg/dL *HI* (10/24/2013 12:57:00) Glucose Lvl [70-99 mg/dL] 84 mg/dL 2 (10/24/2013 12:57:00) Calcium Lvl [8.5-10.5 mg/dL] 9.7 mg/dL (10/24/2013 12:57:00) POC A Hct [36.0-48.0 %] 31.0 % *LOW* (10/24/2013 16:41:00) POC A Ca Ion [1.05-1.25 mMol/L] 1.22 mMol/L (10/24/2013 16:41:00) POC A K [3.5-5.1 mEq/L] 3.5 mEq/L (10/24/2013:) POC A Source ART *NA* (10/24/2013) POC A Temp 37.0 DegC *NA* (10/24/2013) POC A pH [7.35-7.45] 7.36 (10/24/2013) POC A PCO2 [35-45 mmHg] 52 mmHg *HI* (10/24/2013) POC A PO2 [80-100 mmHg] 85 mmHg (10/24/2013:) POC A HCO3 [22-26 mMol/L] 29 mMol/L *HI* (10/24/2013) POC A BE [-2-2 mMol/L] 3 mMol/L *HI* (10/24/2013) POC A O2 Sat [95.0-100.0 %] 96.0 % (10/24/2013:) POC A Glu [70-99 mg/dL] 78 mg/dL (10/24/2013:) POC A LA [0.5-2.2 mMol/L] 0.4 mMol/L *LOW* (10/24/2013:) POC A Na [135-145 mEq/L] 136 mEq/L (10/24/2013:) 1Result Comment: The eGFR is calculated using [...] from the National Kidney Disease Education Program ( NKDEP) which additionally recommends that when the eGFR is used in patients with extremes of body mass index for purposes of drug dosing, the eGFR should be mul tiplied by the estimated BMI. 2Interpretive Data: Adult reference range values reflect the clinical guidelines of the [place] [employer]. HEMATOLOGY Most recent to oldest [Reference Range]: 1 WBC [3.7-10.4 K/CMM] 6.6 K/CMM (10/24/2013:57:00) RBC [4.20-5.40 M/CMM] 4.32 M/CMM (10/24/2013:57:00) Hgb [12.0-16.0 g/dL] 12.9 g/dL (10/24/2013:57:00) Hct [36.0-48.0 %] 39.1 % (10/24/2013:57:00) MCV [81.0-99.0 fL] 90.5 fL (10/24/2013:00) MCH [27.0-31.0 pg] 30.0 pg (10/24/2013:57:00) MCHC [32.0-36.0 g/dL] 33.1 g/dL (10/24/2013:57:00) RDW [11.5-14.5 %] 13.0 % (10/24/2013:57:00) Platelet [133-450 K/CMM] 218 K/CMM (10/24/2013:57:00) MPV [7.4-10.4 fL] 10.1 fL (10/24/2013:57:00) Segs [45.0-75.0 %] 55.1 % (10/24/2013:57:00) Lymphocytes [20.0-40.0 %] 35.3 % (10/24/2013:57:00) Monocytes [2.0-12.0 %] 7.4 % (10/24/2013:57:00) Eosinophils [0.0-4.0 %] 1.6 % (10/24/2013::00) Basophils [0.0-1.0 %] 0.6 % (10/24/2013:57:00) Segs-Bands # [1.5-8.1 K/CMM] 3.6 K/CMM (10/24/2013:57:00) Lymphocytes # [1.0-5.5 K/CMM] 2.3 K/CMM (10/24/2013 12:57:00) Monocytes # [0.0-0.8 K/CMM] 0.5 K/CMM (10/24/2013 12:57:00) Eosinophils # [0.0-0.5 K/CMM] 0.1 K/CMM (10/24/2013 12:57:00) PT [12.0-14.7 seconds] 12.5 seconds (10/24/2013 12:57:00) INR [0.85-1.17] 0.94 3 (10/24/2013 12:57:00) PTT [22.9-35.8 seconds] 29.5 seconds 4 (10/24/2013 12:57:00) 3Interpretive Data: RECOMMENDED RANGES FOR PROTIME INR: 2.0-3.0 for most medical and surgical thromboembolic states. 2.5-3.5 for artificial heart valves and recurrent embolism. INR SHOULD BE USED ONLY FOR PATIENTS ON STABLE ANTICOAGULANT THERAPY. 4Interpretive Data: Heparin Therapeutic Range: 57 - 92 Seconds
--- OUTSIDE RECORDS SUMMARY | 2018-08-16 11:58 | XMS REPORT | Summary of Care ---
Author Organization Unknown Address Unknown Phone Unavailable Encounter HQ Encntr_alininoska(FIN) [id number] Date(s): 02/09/15 - 02/09/15 [facility] [address] [place] [address]- [phone] Discharge Disposition: Home Physician Attending: Dewey Portillo MD Physician_Referring: JONATHAN JOHNSON Vital Signs No data available for this section Problem List Condition Effective Dates Status Health Status Informant Chest Resolved pain(Confirmed) Dizziness(Confirmed) Resolved Allergies, Adverse Reactions, Alerts Substance Reaction Severity Status codeine Active Demerol HCl Active meperidine1 Active 1Data migrated from [employer] on 01/14/15. Originally documented as DEMEROL. Medications No data available for this section Results No data available for this section Immunizations No data available for this section Procedures No data available for this section Social History No data available for this section Assessment and Plan No data available for this section
--- OUTSIDE RECORDS SUMMARY | 2018-08-16 11:59 | XMS REPORT | Summary of Care ---
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 The patient is s/p bypass of the proximal subclavian artery and has done well for years. Two years ago, she had a temporary worsening of symptoms due to reduced cardiac output from diastolic heart failure. --Currently, the only residual of the syndrome is listing at times. 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 2Data migrated from [employer] on 02/16/15. 3Data migrated from [employer] on 02/16/15. 4Data migrated from [employer] on 02/16/15. 5Data migrated from [employer] on 02/16/15. 6Data migrated from [employer] on 10/04/15. The patient improved after amlodipine was added to her regimen after the heart catheterization. However, she has residual symptoms and has not been able to followup with Dr. Smith or Dr. Coello since. This was recommended. Originally documented as Diastolic heart failure. 7Data migrated from [employer] on 10/04/15. The patient improved after amlodipine was added to her regimen after the heart catheterization. However, she has residual symptoms and has not been able to followup with Dr. Smith (he apparently left the area). She may improve further with additional intervention. She should have cardiology follow up. Originally documented as Diastolic heart failure. 8Data migrated from [employer] on 02/16/15. 9Data migrated from [employer] on 02/16/15. 10Data migrated from [employer] on 02/16/15. 11Data migrated from [employer] on 02/16/15. 12Data migrated from [email or web address] on 10/04/15. The patient suffered a delirium possibly even with primary meningitis or encephalitis during an attack of pneumonia in August. She has done strikingly well and is still improving. She had ventriculomegaly demonstrated on another MRI of the brain but this is asymptomatic. No intervention is indicated. Originally documented as History of delirium. 13Data migrated from [employer] on 02/16/15. 14Data migrated from [employer] on 02/16/15. 15Data migrated from [employer] on 02/16/15. 16Data migrated from [employer] on 02/16/15. 17Data migrated from [employer] on 05/11/15. Allergies, Adverse Reactions, Alerts Substance Reaction Severity Status codeine1, 2 Active meperidine3, 4 Active Demerol HCl Active 1Data migrated from [employer] on 10/02/16. Originally documented as Codeine Sulfate. 2Data migrated from [employer] on 11/17/15. Originally documented as CODEINE. 3Data migrated from [email or web address] on 10/02/16. Originally documented as Demerol. 4Data migrated from [employer] on 01/14/15. Originally documented as DEMEROL. Medications No data available for this section Results No data available for this section Immunizations No data available for this section Procedures Procedure Date Related Diagnosis Body Site Appendectomy Miscellaneous operations Miscellaneous operations Miscellaneous operations Open heart surgery Triple coronary bypass Social History Social History Type Response Employment/School Status: Retired. Highest education level: High school. Alcohol Current, Type Wine, Liquor. Smoking Status Never smoker; Exposure to Tobacco Smoke None; Cigarette Smoking Last 365 Days No; Reg Smoking Cessation Counseling No Assessment and Plan No data available for this section
--- OUTSIDE RECORDS SUMMARY | 2018-08-16 11:59 | XMS REPORT | Summary of Care ---
Author Author [facility] Organization [facility] Address Unknown Phone Unavailable Encounter BEN Friedman(CESAR) [id number] Date(s): 03/12/18 - 03/12/18 [facility] [address] [place] [phone] Discharge Disposition: Home or Self Care Attending Physician: Polo Chaudhari MD Referring Physician: Christophe Mackey MD Vital Signs Most recent to 1 oldest [Reference Range]: Blood Pressure 126/75 mmHg [90-140/60-90 mmHg] (03/12/18 11:08 AM) Peripheral Pulse 75 bpm Rate [60-100 bpm] (03/12/18 11:08 AM) Weight 49.545 kg (03/12/18 11:08 AM) Problem List Condition Effective Dates Status Health Status Informant 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 The patient is s/p bypass of the proximal subclavian artery and has done well for years. Two years ago, she had a temporary worsening of symptoms due to reduced cardiac output from diastolic heart failure. --Currently, the only residual of the syndrome is listing at times. 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 2Data migrated from [employer] on 02/16/15. 3Data migrated from [employer] on 02/16/15. 4Data migrated from [employer] on 02/16/15. 5Data migrated from [employer] on 02/16/15. 6Data migrated from [employer] on 10/04/15. The patient improved after amlodipine was added to her regimen after the heart catheterization. However, she has residual symptoms and has not been able to followup with Dr. Smith or Dr. Coello since. This was recommended. Originally documented as Diastolic heart failure. 7Data migrated from [employer] on 10/04/15. The patient improved after amlodipine was added to her regimen after the heart catheterization. However, she has residual symptoms and has not been able to followup with Dr. Smith (he apparently left the area). She may improve further with additional intervention. She should have cardiology follow up. Originally documented as Diastolic heart failure. 8Data migrated from [employer] on 02/16/15. 9Data migrated from [employer] on 02/16/15. 10Data migrated from [employer] on 02/16/15. 11Data migrated from [employer] on 02/16/15. 12Data migrated from [employer] on 10/04/15. The patient suffered a [...] Active Demerol HCl Active 1Data migrated from [employer] on 10/02/16. Originally documented as Codeine Sulfate. 2Data migrated from [employer] on 11/17/15. Originally documented as CODEINE. 3Data migrated from [employer] on 10/02/16. Originally documented as Demerol. 4Data migrated from [employer] on 01/14/15. Originally documented as DEMEROL. Medications No Known Medications Results No data available for this section Immunizations No data available for this section Procedures Procedure Date Related Diagnosis Body Site Status Appendectomy Completed Miscellaneous operations Completed Miscellaneous operations Completed Miscellaneous operations Completed Open heart surgery Completed Triple coronary bypass Completed Social History Social History Type Response Substance Abuse Use: None. Employment/School Status: Retired. Highest education level: High school. Alcohol Current, Type Wine, Liquor. Smoking Status Never smoker; Exposure to Tobacco Smoke None; Cigarette Smoking Last 365 Days No; Reg Smoking Cessation Counseling No entered on: 03/12/18 Assessment and Plan No data available for this section
--- OUTSIDE RECORDS SUMMARY | 2018-08-16 11:59 | XMS REPORT | Summary of Care ---
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 The patient is s/p bypass of the proximal subclavian artery and has done well for years. Two years ago, she had a temporary worsening of symptoms due to reduced cardiac output from diastolic heart failure. --Currently, the only residual of the syndrome is listing at times. 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 2Data migrated from [employer] on 02/16/15. 3Data migrated from [employer] on 02/16/15. 4Data migrated from [employer] on 02/16/15. 5Data migrated from [employer] on 02/16/15. 6Data migrated from [employer] on 10/04/15. The patient improved after amlodipine was added to her regimen after the heart catheterization. However, she has residual symptoms and has not been able to followup with Dr. Smith or Dr. Coello since. This was recommended. Originally documented as Diastolic heart failure. 7Data migrated from [employer] on 10/04/15. The patient improved after amlodipine was added to her regimen after the heart catheterization. However, she has residual symptoms and has not been able to followup with Dr. Smith (he apparently left the area). She may improve further with additional intervention. She should have cardiology follow up. Originally documented as Diastolic heart failure. 8Data migrated from [employer] on 02/16/15. 9Data migrated from [employer] on 02/16/15. 10Data migrated from [employer] on 02/16/15. 11Data migrated from [employer] on 02/16/15. 12Data migrated from [employer] on 10/04/15. The patient suffered a delirium possibly even with primary meningitis or encephalitis during an attack of pneumonia in August. She has done strikingly well and is still improving. She had ventriculomegaly demonstrated on another MRI of the brain but this is asymptomatic. No intervention is indicated. Originally documented as History of delirium. 13Data migrated from [employer] on 02/16/15. 14Data migrated from [employer] on 02/16/15. 15Data migrated from [employer] on 02/16/15. 16Data migrated from [employer] on 02/16/15. 17Data migrated from [employer] on 05/11/15. Allergies, Adverse Reactions, Alerts Substance Reaction Severity Status codeine1, 2 Active meperidine3, 4 Active Demerol HCl Active 1Data migrated from [employer] on 10/02/16. Originally documented as Codeine Sulfate. 2Data migrated from [employer] on 11/17/15. Originally documented as CODEINE. 3Data migrated from [employer] on 10/02/16. Originally documented as Demerol. 4Data migrated from [employer] on 01/14/15. Originally documented as DEMEROL. Medications No data available for this section Results No data available for this section Immunizations No data available for this section Procedures Procedure Date Related Diagnosis Body Site Status Appendectomy Completed Miscellaneous operations Completed Miscellaneous operations Completed Miscellaneous operations Completed Open heart surgery Completed Triple coronary bypass Completed Social History Social History Type Response Employment/School Status: Retired. Highest education level: High school. Alcohol Current, Type Wine, Liquor. Smoking Status Never smoker; Exposure to Tobacco Smoke None; Cigarette Smoking Last 365 Days No; Reg Smoking Cessation Counseling No entered on: 02/22/17 Assessment and Plan No data available for this section
--- OUTSIDE RECORDS SUMMARY | 2018-08-16 11:59 | XMS REPORT | Summary of Care ---
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 The patient is s/p bypass of the proximal subclavian artery and has done well for years. Two years ago, she had a temporary worsening of symptoms due to reduced cardiac output from diastolic heart failure. --Currently, the only residual of the syndrome is listing at times. 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 2Data migrated from [employer] on 02/16/15. 3Data migrated from [employer] on 02/16/15. 4Data migrated from [employer] on 02/16/15. 5Data migrated from [employer] on 02/16/15. 6Data migrated from [employer] on 10/04/15. The patient improved after amlodipine was added to her regimen after the heart catheterization. However, she has residual symptoms and has not been able to followup with Dr. mSith or Dr. Coello since. This was recommended. Originally documented as Diastolic heart failure. 7Data migrated from [employer] on 10/04/15. The patient improved after amlodipine was added to her regimen after the heart catheterization. However, she has residual symptoms and has not been able to followup with Dr. Smith (he apparently left the area). She may improve further with additional intervention. She should have cardiology follow up. Originally documented as Diastolic heart failure. 8Data migrated from [employer] on 02/16/15. 9Data migrated from [employer] on 02/16/15. 10Data migrated from [employer] on 02/16/15. 11Data migrated from [employer] on 02/16/15. 12Data migrated from [employer] on 10/04/15. The patient suffered a [...] Active Demerol HCl Active 1Data migrated from [employer] on 10/02/16. Originally documented as Codeine Sulfate. 2Data migrated from [employer] on 11/17/15. Originally documented as CODEINE. 3Data migrated from [employer] on 10/02/16. Originally documented as Demerol. 4Data migrated from [employer] on 01/14/15. Originally documented as DEMEROL. Medications [...]
--- OUTSIDE RECORDS SUMMARY | 2018-08-16 11:59 | XMS REPORT ---
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 Allergies, Adverse Reactions, Alerts This patient has no known allergies or adverse reactions. Medications This patient has no known medications. Results Test Description Test Time Test Comments Text Results Atomic Results Result Comments CTA NECK 2018-03-22 10:07:00 [facility] [address] [address] Patient Name: MORGAN DORANTES MR #: [id number] : 1945 Age/Sex: 72/F Req #: [id number] Adm Physician: Ordered by: ELLEN CABALLERO MD Report #: [id number] Location: CT Room/Bed: Procedure: [id number] CT/CTA NECK Exam Date: 03/21/18 Exam Time: 1631 REPORT STATUS: Signed ADDENDUM #1 Dose modulation, iterative reconstruction, and/or weight based adjustment of the mA/kV was utilized to reduce the radiation dose to as low as reasonably achievable. For optimization of of anatomic evaluation, multi-planar reconstructions, maximum intensity projections, and advanced 3D off-line post-processing was obtained and performed on a dedicated stand-alone workstation under the direct supervision of the interpreting physician. Signed by: Dr. Francoise Wallace M.D. on 05/07/2018 11:45 AM ORIGINAL REPORT EXAMINATION: CT angiogram of the [place] and neck with contrast CLINICAL HISTORY: Dizziness, enlarged ventricles, vertebral basilar atherosclerosis. COMPARISON: Brain MRI on 10/15/2009 TECHNIQUE: The head and neck was scanned utilizing a multidetector helical scanner from the thoracic inlet to the vertex after the I.V contrast administration of 75 mL of Isovue-370. Multiplanar sagittal and coronal reconstructions were performed as well. FINDINGS: The are no areas of abnormal density or enhancement in the brain. There is no mass, hemorrhage or extra-axial fluid collection. The CSF containing spaces are normal in size, position and configuration. CT ANGIOGRAM OF THE [place]: The internal carotid artery segments as well as the middle cerebral and anterior cerebral arteries are normal in caliber. The basilar and right vertebral arteries are normal. No vascular malformation or aneurysmal dilatation is seen. The draining venous structures are normal and patent. Anatomic variation: Anterior Commun icating Artery: Patent Posterior Communicating Arteries: Patent bilaterally. origin of left ACCESS CONTROL SPECIALIST Vertebral arteries: The right is dominant. 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 Fenestrated basilar artery CT ANGIOGRAM OF THE NECK: If present, stenosis of the carotid bulbs is measured based on NASCET criteria i.e area of maximum stenosis compared to the cervical ICA distal to the bulb. The origin of the vessels is patent bilaterally. Mostly calcified atherosclerotic plaque in the bilateral carotid bulbs results in mild stenosis (a some 50%.) Right Carotid Artery: The common carotid, internal and external carotid arteries at the level of the neck are normal in caliber, and patent, no evidence of stenoses. Left carotid artery: The common carotid, internal and external carotid arteries at the level of the neck are normal in caliber, and patent, no evidence of stenoses. 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 The right vertebral artery is dominant, patent. Both are normal in morphology and caliber. Both are codominant. No significant stenosis is seen. Incidental findings: Near complete opacification of the right maxillary sinus with hyperdensity/central calcifications likely from chronic artery process. IMPRESSION: 1. Mild stenosis of the bilateral carotid bulbs (less than 50%). 2. 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 Signed by: Dr. Francoise Wallace M.D. on 03/22/2018 1:38 PM Dictated By: FRANCOISE WALLACE MD [id number] Transcribed By: MARIANA on 03/22/18 1338 COPY TO: ELLEN CABALLERO MD CTA BRAIN 2018-03-22 10:07:[address] [address] Patient Name: MORGAN DORANTES MR #: [id number] : 1945 Age/Sex: 72/F Req #: [id number] Adm Physician: Ordered by: ELLEN CABALLERO MD Report #: [id number] Location: CT Room/Bed: Procedure: [id number] CT/CTA BRAIN Exam Date: 03/21/18 Exam Time: 2 REPORT STATUS: Signed ADDENDUM #1 Dose modulation, iterative reconstruction, and/or weight based adjustment of the mA/kV was utilized to reduce the radiation dose to as low as reasonably achievable. For optimization of of anatomic evaluation, multi-planar reconstructions, maximum intensity projections, and advanced 3D off-line post-processing was obtained and performed on a dedicated stand-alone workstation under the direct supervision of the interpreting physician. Signed by: Dr. Francoise Wallace M.D. on 05/07/2018 11:45 AM ORIGINAL REPORT EXAMINATION: CT angiogram of the [place] and neck with contrast CLINICAL HISTORY: Dizziness, enlarged ventricles, vertebral basilar atherosclerosis. COMPARISON: Brain MRI on 10/15/2009 TECHNIQUE: The head and neck was scanned utilizing a multidetector helical scanner from the thoracic inlet to the vertex after the I.V contrast administration of 75 mL of Isovue-370. Multiplanar sagittal and coronal reconstructions were performed as well. FINDINGS: The are no areas of abnormal density or enhancement in the brain. There is no mass, hemorrhage or extra-axial fluid collection. The CSF containing spaces are normal in size, position and configuration. CT ANGIOGRAM OF THE [place]: The internal carotid artery segments as well as the middle cerebral and anterior cerebral arteries are normal in caliber. The basilar and right vertebral arteries are normal. No vascular malformation or aneurysmal dilatation is seen. The draining venous structures are normal and patent. Anatomic variation: Anterior Commu nicating Artery: Patent Posterior Communicating Arteries: Patent bilaterally. origin of left ACCESS CONTROL SPECIALIST Vertebral arteries: The right is dominant. 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 Fenestrated basilar artery CT ANGIOGRAM OF THE NECK: If present, stenosis of the carotid bulbs is measured based on NASCET criteria i.e area of maximum stenosis compared to the cervical ICA distal to the bulb. The origin of the vessels is patent bilaterally. Mostly calcified atherosclerotic plaque in the bilateral carotid bulbs results in mild stenosis (a some 50%.) Right Carotid Artery: The common carotid, internal and external carotid arteries at the level of the neck are normal in caliber, and patent, no evidence of stenoses. Left carotid artery: The common carotid, internal and external carotid arteries at the level of the neck are normal in caliber, and patent, no evidence of stenoses. 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 The right vertebral artery is dominant, patent. Both are normal in morphology and caliber. Both are codominant. No significant stenosis is seen. Incidental findings: Near complete opacification of the right maxillary sinus with hyperdensity/central calcifications likely from chronic artery process. IMPRESSION: 1. Mild stenosis of the bilateral carotid bulbs (less than 50%). 2. 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 Signed by: Dr. Francoise Wallace M.D. on 03/22/2018 1:38 PM Dictated By: FRANCOISE WALLACE MD [id number] Transcribed By: MARIANA on 03/22/18 0037 COPY TO: ELLEN CABALLERO MD
--- OUTSIDE RECORDS SUMMARY | 2018-08-16 11:59 | XMS REPORT | Summary of Care ---
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 The patient is s/p bypass of the proximal subclavian artery and has done well for years. Two years ago, she had a temporary worsening of symptoms due to reduced cardiac output from diastolic heart failure. --Currently, the only residual of the syndrome is listing at times. 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 2Data migrated from [employer] on 02/16/15. 3Data migrated from [employer] on 02/16/15. 4Data migrated from [employer] on 02/16/15. 5Data migrated from [employer] on 02/16/15. 6Data migrated from [employer] on 10/04/15. The patient improved after amlodipine was added to her regimen after the heart catheterization. However, she has residual symptoms and has not been able to followup with Dr. Smith or Dr. Coello since. This was recommended. Originally documented as Diastolic heart failure. 7Data migrated from [employer] on 10/04/15. The patient improved after amlodipine was added to her regimen after the heart catheterization. However, she has residual symptoms and has not been able to followup with Dr. Smith (he apparently left the area). She may improve further with additional intervention. She should have cardiology follow up. Originally documented as Diastolic heart failure. 8Data migrated from [employer] on 02/16/15. 9Data migrated from [employer] on 02/16/15. 10Data migrated from [employer] on 02/16/15. 11Data migrated from [employer] on 02/16/15. 12Data migrated from [employer] on 10/04/15. The patient suffered a [...] Substance Reaction Severity Status codeine1, 2 Active Demerol HCl Active meperidine3, 4 Active 1Data migrated from [employer] on 10/02/16. Originally documented as Codeine Sulfate. 2Data migrated from [employer] on 11/17/15. Originally documented as CODEINE. 3Data migrated from [employer] on 10/02/16. Originally documented as Demerol. 4Data migrated from [employer] on 01/14/15. Originally documented as DEMEROL. Medications [...]
--- NOTE | 2018-08-16 17:12 | Operative Report ---
DATE OF PROCEDURE: August 16, 2018 INDICATIONS: Coronary artery disease. Unstable angina. PROCEDURES PERFORMED: 1. Left heart catheterization, selective coronary angiography, left ventriculography. 2. Deployment right groin Vascade closure device COMPLICATIONS: None. RECOMMENDATIONS: Aggressive medical therapy. Access obtained in the right femoral artery. A 6-Pashto sheath was placed. Diagnostic coronary angiography demonstrated no angiographic coronary artery disease. Excellent flow in all vessels and LV ejection fraction 60%. LV end-diastolic pressure of 8. No gradient across the aortic valve pullback. Right groin was repaired using Vascade closure device. Patient discharged home same day. Job#: [id number]
== END | disposition home or self-care (01) ==
LOC: CATH LAB 11:54
PROVIDERS: ATTEND Internal Medicine Interventional Cardiology
DX: I25.110 Atherosclerotic heart disease of native coronary artery with unstable angina pectoris (principal); I70.219 Atherosclerosis of native arteries of extremities with intermittent claudication, unspecified extremity; I10 Essential (primary) hypertension; I77.1 Stricture of artery; Z01.812 Encounter for preprocedural laboratory examination; Z79.02 Long term (current) use of antithrombotics/antiplatelets; Z79.82 Long term (current) use of aspirin
CPT/HCPCS: 36415; 80053; 80061; 85025; 85610; 93458; C1760; C1769; J2001; J2250; J7030; Q9967

== ENCOUNTER → 2019-04-07 | Outpatient (CLI) | payer MEDICARE ==
[~2019-04-07] MED LIST changes: -FENTANYL CITRATE/PF 100MCG/2 ML INJ ONE; -HEPARIN SOD/SOD CHLORIDE 2,000 ML ONE; -IOPAMIDOL 370 MG/ML 200 ML INFUS..BTL INJ ONE; -LIDOCAINE HCL 2% LOCAL 20 ML VIAL ONE; -MIDAZOLAM HCL 2 MG/2 ML VIAL ONE; -SODIUM CHLORIDE 0.9% 1000ML 1,000 ML ONE
--- NOTE | 2019-04-07 13:17 | Diagnostic Imaging Report ---
History: Unsteady, falling, double vision Comparison studies: MRI brain 10/15/1999 Technique: Sagittal T2; axial DWI, FLAIR, MPGR, T1, Coronal FLAIR. Intravenous contrast: None Findings: Scalp: Normal in signal . No masses . Bone marrow: Normal in signal intensity. Extra-axial: No masses, no fluid collections. Brain sulci: Appropriate for age. Ventricles: Moderately prominent supratentorial ventricular system . . Parenchyma: Scattered small T-2/flair hyperintensities with ventricular capping No masses, hemorrhage, acute or chronic vascular insults. Suprasellar region: No abnormalities. Craniocervical junction: No abnormalities. Patent foramen magnum. No Chiari one malformation. Vessels: Normal flow-voids in the arteries and sinuses. Mucosal thickening at the right maxillary sinus, seen on previous exam. IMPRESSION: 1. Moderate dilation of the supratentorial ventricular system with mild transependymal migration of CSF, more prominent than on a previous examination, concerning for chronic hydrocephalus. 2. Mild chronic microvascular ischemic changes of the white matter. 3. Chronic right maxillary sinusitis Signed by: DR Chris Hawkins M.D. on 04/07/2019 1:14 PM
== END ==
LOC: MRI 09:23
PROVIDERS: ATTEND Radiology Neuroradiology
DX: G45.0 Vertebro-basilar artery syndrome (principal)
CPT/HCPCS: 70551

== ENCOUNTER → 2019-06-17 | Outpatient (CLI) | payer MEDICARE ==
[~2019-06-17] MED LIST changes: +DIATRIZOATE MEGL/DIATRIZOA SOD 30 ML BTL PO ONE; +IOPAMIDOL 370 MG/ML 200 ML INFUS..BTL INJ ONE; +SODIUM CHLORIDE 0.9% 500ML 500 ML ONE; +SODIUM CHLORIDE 0.9% 50ML 50 ML ONE
[2019-06-17 10:48] LABS: CREATININE, SERUM 1.49 mg/dL (0.57-1.11)
--- NOTE | 2019-06-17 12:53 | Diagnostic Imaging Report ---
EXAM: CT Abdomen and Pelvis WITH intravenous contrast INDICATION: Abdominal pain, diverticulitis COMPARISON: CT abdomen and pelvis of 11/08/2010 TECHNIQUE: Abdomen and pelvis were scanned utilizing a multidetector helical scanner from the lung base to the pubic symphysis after administration of IV contrast. Coronal and sagittal reformations were obtained. Routine protocol was performed. Scan was performed during portal venous phase. IV CONTRAST: 100mL of Isovue 370 ORAL CONTRAST: Gastrografin RADIATION DOSE: Total DLP: 202.3 mGy*cm Dose modulation, iterative reconstruction, and/or weight based adjustment of the mA/kV was utilized to reduce the radiation dose to as low as reasonably achievable. FINDINGS: LOWER THORAX: Minimal bibasilar dependent subsegmental atelectasis. HEPATOBILIARY: Diffuse hepatic steatosis. No focal liver lesions. No biliary ductal dilation. Unremarkable appearing gallbladder. Small focus of air in the distal common bile duct, possibly due to recent instrumentation. SPLEEN: No splenomegaly. PANCREAS: No focal masses or ductal dilatation. ADRENALS: No adrenal nodules. KIDNEYS/URETERS: No hydronephrosis or renal calculi. Bilateral simple appearing renal cysts measuring up to 1.7 cm on the left and 2.4 cm on the right. PELVIC ORGANS/BLADDER: Unremarkable. PERITONEUM / RETROPERITONEUM: No free air or fluid. LYMPH NODES: No lymphadenopathy. VESSELS: Diffuse atherosclerotic calcifications of the nonaneurysmal abdominal aorta and major branches. GI TRACT: Sigmoid diverticulosis. No CT evidence of diverticulitis. No abnormal bowel wall thickening. No bowel obstruction. Reported history of appendectomy. BONES AND SOFT TISSUES: Mild levoconvex curvature of the lumbar spine. Degenerative changes of the visualized spine. No acute osseous injury. No suspicious lytic or blastic lesions. IMPRESSION: Sigmoid diverticulosis with no CT evidence of diverticulitis. Diffuse hepatic steatosis. Small focus of air in the distal common bile duct could be due to recent instrumentation. Signed by: Azalea Cook MD on 06/17/2019 12:49 PM
== END ==
LOC: CT 09:54
PROVIDERS: ATTEND Internal Medicine Interventional Cardiology
DX: R10.9 Unspecified abdominal pain (principal); Z87.19 Personal history of other diseases of the digestive system
CPT/HCPCS: 36415; 74177; 82565; 84520; 96360; J7040; Q9967

== ENCOUNTER 2019-08-04 11:41 | Emergency (ER) | payer MEDICARE ==
[~2019-08-04] VITALS: Ht 154.9 cm; Wt 49.0 kg
[~2019-08-04 11:41] MED LIST changes: -DIATRIZOATE MEGL/DIATRIZOA SOD 30 ML BTL PO ONE; -IOPAMIDOL 370 MG/ML 200 ML INFUS..BTL INJ ONE; -SODIUM CHLORIDE 0.9% 500ML 500 ML ONE; -SODIUM CHLORIDE 0.9% 50ML 50 ML ONE
[2019-08-04 12:56] LABS: BASOPHILS % 0.7 % (0.0-1.0); EOSINOPHILS # (AUTO) 0.1 (0.0-0.4); EOSINOPHILS % 1.8 % (0.0-6.0); HEMATOCRIT 35.4 % (34.2-44.1); HEMOGLOBIN 11.5 g/dL (12.0-16.0); LYMPHOCYTES % 33.6 % (18.0-39.1); MEAN CORPUSCULAR HEMOGLOBIN 31.2 pg (28-32); MEAN CORPUSCULAR HGB CONC 32.5 g/dL (31-35); MEAN CORPUSCULAR VOLUME 95.9 fL (81-99); MONOCYTES # (AUTO) 0.5 (0.2-0.8); MONOCYTES % 8.3 % (4.4-11.3); NEUTROPHILS # (AUTO) 3.3 (2.1-6.9); NEUTROPHILS % 55.1 % (38.7-80.0); PLATELET COUNT 200 x10e3/uL (140-360); RED BLOOD COUNT 3.69 x10e6/uL (3.6-5.1)
[2019-08-04 12:59] LABS: BILIRUBIN,URINE NEGATIVE (NEGATIVE); CLARITY,URINE CLEAR (CLEAR); COLOR,URINE YELLOW (YELLOW); KETONES,URINE NEGATIVE (NEGATIVE); LEUKOCYTE ESTERASE ,URINE TRACE (NEGATIVE); NITRITE,URINE NEGATIVE (NEGATIVE); PROTEIN,URINE DIPSTICK NEGATIVE (NEGATIVE); URINE UROBILINOGEN 0.2 mg/dL (0.2 - 1)
[2019-08-04 13:18] LABS: ANION GAP 13.7 mmol/L (8-16); CALCIUM 9.3 mg/dL (8.4-10.2); CREATININE, SERUM 1.71 mg/dL (0.57-1.11); POTASSIUM 3.7 mmol/L (3.5-5.1)
[2019-08-04] MEDS ORDERED: ONDANSETRON HCL INJ 2MG/ML 2ML 2 MG/ML VIAL IV ONE (13:30)
[2019-08-04] MEDS ORDERED: MORPHINE SULFATE 2 MG/ML SYR 1ML IV ONE (13:30)
[2019-08-04 13:33] LABS: BACTERIA,URINE MODERATE /HPF; EPITHELIAL CELLS,URINE FEW /LPF; MUCUS,URINE RARE (RARE)
[2019-08-04 14:41] VITALS: BP 147/66
== END 2019-08-04 14:47 | disposition home or self-care (01) ==
LOC: ER 11:41
DX: R10.32 Left lower quadrant pain (principal); R11.0 Nausea; N30.91 Cystitis, unspecified with hematuria; I10 Essential (primary) hypertension; E78.5 Hyperlipidemia, unspecified; I51.9 Heart disease, unspecified
CPT/HCPCS: 36415; 80048; 81001; 83690; 85025; 99283; J2270; J2405

== ENCOUNTER → 2020-11-10 | Outpatient (CLI) | payer MEDICARE | LOC: CT 17:19 | PROVIDERS: ATTEND Radiology Neuroradiology | DX: G91.0 Communicating hydrocephalus (principal) | CPT/HCPCS: 70450 ==

== ENCOUNTER → 2021-10-05 | Outpatient (CLI) | payer MEDICARE ==
[~2021-10-05] MED LIST changes: +IOPAMIDOL 370 MG/ML 200 ML INFUS..BTL INJ ONE; +SODIUM CHLORIDE 0.9% 100 ML ONE; +SODIUM CHLORIDE 0.9% 500ML 500 ML ONE
[2021-10-05 12:43] LABS: CREATININE, SERUM 1.45 mg/dL (0.57-1.11)
== END ==
LOC: MRI 11:42
PROVIDERS: ATTEND Radiology Neuroradiology
DX: G45.8 Other transient cerebral ischemic attacks and related syndromes (principal)
CPT/HCPCS: 36415; 70496; 70498; 82565; 84520; 96360; J7040; J7050; Q9967

== ENCOUNTER → 2021-10-10 | Outpatient (CLI) | payer MEDICARE ==
[~2021-10-10] MED LIST changes: -IOPAMIDOL 370 MG/ML 200 ML INFUS..BTL INJ ONE; +LORAZEPAM INJ 2 MG/ML VIAL ONE; -SODIUM CHLORIDE 0.9% 100 ML ONE; -SODIUM CHLORIDE 0.9% 500ML 500 ML ONE
== END ==
LOC: MRI 09:03
PROVIDERS: ATTEND Radiology Neuroradiology
DX: G45.8 Other transient cerebral ischemic attacks and related syndromes (principal)
CPT/HCPCS: 70551; J2060